=== PATIENT | female | born 1970 | race Caucasian/White ===

== ENCOUNTER 2016-06-28 16:26 | Emergency (ER) | payer OTHER ==
[~2016-06-28] VITALS: Ht 165.1 cm; Wt 77.1 kg
[2016-06-28 16:46] VITALS: BP 129/95
[2016-06-28] MEDS ORDERED: METF500T PO (16:48)
--- NOTE | 2016-06-28 16:49 | NUR ---
Patient ambulated to bed 8. RN evaluating patient at bedside.
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
--- NOTE | 2016-06-28 17:08 | NUR ---
ER MD DR MARCOS EVALUATING PT AT BEDSIDE
[2016-06-28] MEDS ORDERED: HYDROcodone/APAP 5/325 MG 1 TAB TAB PO ONE (17:20)
[2016-06-28] MEDS ORDERED: METHOCARBAMOL 500 MG TAB PO SCH (17:20)
[2016-06-28 17:40] LABS: BASOPHILS # (AUTO) 0.3 K/uL (0.00-0.22); BASOPHILS % (AUTO) 3.3 % (0.0-2.0); EOSINOPHILS # (AUTO) 0.4 K/uL (0-0.4); EOSINOPHILS % (AUTO) 4.4 % (0.0-4.0); HEMATOCRIT 39.9 % (36-48); HEMOGLOBIN 13.1 g/dL (12.0-16.0); LYMPHOCYTES # (AUTO) 2.9 K/uL (2.5-16.5); LYMPHOCYTES % (AUTO) 32.2 % (20.5-51.1); MEAN CORPUSCULAR HEMOGLOBIN 28 pg (27-31); MEAN CORPUSCULAR HGB CONC 33 g/dL (33-37); MEAN CORPUSCULAR VOLUME 85 fL (80-94); MONOCYTES # (AUTO) 0.5 K/uL (0.8-1.0); MONOCYTES % (AUTO) 5.1 % (1.7-9.3); NEUTROPHILS # (AUTO) 4.8 K/uL (1.8-7.7); PLATELET COUNT (AUTO) 191 K/uL (140-450); RED CELL DISTRIBUTION WIDTH 12.6 % (11.6-13.7)
[2016-06-28 17:48] LABS: ANION GAP 12.4 (8-16); CALCIUM 7.9 mg/dL (8.5-10.1); CARBON DIOXIDE 26.6 mmol/L (21-32); CREATININE 0.8 mg/dL (0.6-1.3)
[2016-06-28 17:54] LABS: ALBUMIN 3.3 g/dL (3.4-5.0); TOTAL BILIRUBIN 0.3 mg/dL (0.0-1.0); TOTAL PROTEIN, SERUM 7.3 g/dL (6.4-8.2)
--- NOTE | 2016-06-28 18:02 | NUR ---
PT TAKEN TO X RAY VIA W/C ACCOMPANIED BY NATHANIEL BAUTISTAT
--- NOTE | 2016-06-28 19:14 | NUR ---
Pt report given to KAT AVILA. Transfer of care at this time.
--- NOTE | 2016-06-28 19:15 | NUR ---
RECIEVED REPORT FROM AM NURSE AT BEDSIDE. PT IS AAOX4, NO SOB/DISTRESS NOTED. C/O PAIN ON LEFT NECK, SHOULDER, LEFT FLANK, AND LEFT KNEE, 8/10. BRUISE NOTED ON RYLEE. KNEES. IV ON LEFT HAND 20GA, SL. AT THIS TIME. ABLE TO MOVE ALL EXTREMITIES. BS 371MG/GL, AWARE PER REPORT. WILL CONTINUE TO MONITOR.
--- NOTE | 2016-06-28 19:20 | NUR ---
PT TRANSFFERED TO CT VIA WHEELCHAIR.
--- NOTE | 2016-06-28 19:31 | NUR ---
PT IS BACK FROM CT. VSS.
[2016-06-28 21:07] VITALS: BP 120/80
--- NOTE | 2016-06-28 21:07 | NUR ---
Patient discharged with v/s stable. Written and verbal after care instructions given and explained BY DR. PRIETO. Patient alert, oriented and verbalized understanding of instructions. Ambulatory with steady gait. All questions addressed prior to discharge. ID band removed. Patient advised to follow up with PMD. Rx of NAPROSYN given. Patient educated on indication of medication including possible reaction and side effects. Opportunity to ask questions provided and answered.
== END 2016-06-28 21:07 | disposition home or self-care (01) ==
LOC: MED 16:26
DX: S83.92XA Sprain of unspecified site of left knee, initial encounter (principal); E11.65 Type 2 diabetes mellitus with hyperglycemia; R10.84 Generalized abdominal pain; R07.89 Other chest pain; V43.52XA Car driver injured in collision with other type car in traffic accident, initial encounter; Y93.89 Activity, other specified; Y92.89 Other specified places as the place of occurrence of the external cause; Y99.8 Other external cause status
CPT/HCPCS: 36415; 71010; 73562; 80053; 81002; 81025; 82948; 85025; 99285

== ENCOUNTER 2017-02-27 14:48 | Emergency (ER) | payer SELFPAY ==
[~2017-02-27] VITALS: Ht 162.6 cm; Wt 76.8 kg
[~2017-02-27 14:48] MED LIST: METF500T PO
[2017-02-27 15:03] VITALS: BP 140/90
--- NOTE | 2017-02-27 18:02 | NUR ---
Patient ambulated to bed 8. RN evaluating patient at bedside.
--- NOTE | 2017-02-27 18:11 | NUR ---
ASSUMED PATIENT CARE, CONCUR WITH TRIAGE ASSESSMENT, BEDDED IN ER 8, ORIENTED TO PLAN OF CARE.
--- NOTE | 2017-02-27 18:30 | NUR ---
SEEN AND EVALUATED BY PROVIDER, MSE COMPLETED.
[2017-02-27 19:29] VITALS: BP 128/69
--- NOTE | 2017-02-27 19:35 | NUR ---
Patient discharged with v/s stable. Written and verbal after care instructions given and explained. Patient alert, oriented and verbalized understanding of instructions. Ambulatory with steady gait. All questions addressed prior to discharge. ID band removed. Patient advised to follow up with PMD. Rx of IBUPROFEN 800MG QID/PRN, AMOXICILLIN 500MG TID given. Patient educated on indication of medication including possible reaction and side effects. Opportunity to ask questions provided and answered.
== END 2017-02-27 19:29 | disposition home or self-care (01) ==
LOC: MED 14:48
DX: K04.7 Periapical abscess without sinus (principal); K02.9 Dental caries, unspecified; R03.0 Elevated blood-pressure reading, without diagnosis of hypertension; E11.9 Type 2 diabetes mellitus without complications; Z79.84 Long term (current) use of oral hypoglycemic drugs
CPT/HCPCS: 99283

== ENCOUNTER 2022-11-09 15:53 | Emergency (ER) | payer OTHER ==
[~2022-11-09] VITALS: Ht 160 cm; Wt 70.3 kg
[~2022-11-09 15:53] MED LIST changes: +METF-346 PO; -METF500T PO; +METO-486 PO
[2022-11-09 16:09] VITALS: BP 137/60; PULSE 93; RESP 20; TEMP 98; O2SAT 99
[2022-11-09 18:19] LABS: BASOPHILS % (AUTO) 0.5 % (0.0-2.0); EOSINOPHILS # (AUTO) 0.9 K/uL (0-0.4); EOSINOPHILS % (AUTO) 15.8 % (0.0-4.0); HEMATOCRIT 33.2 % (36-48); HEMOGLOBIN 11.2 g/dL (12.0-16.0); LYMPHOCYTES # (AUTO) 1.4 K/uL (2.5-16.5); LYMPHOCYTES % (AUTO) 24.7 % (20.5-51.1); MEAN CORPUSCULAR HEMOGLOBIN 28 pg (27-31); MEAN CORPUSCULAR HGB CONC 34 g/dL (33-37); MEAN CORPUSCULAR VOLUME 83.9 fL (80-94); MONOCYTES # (AUTO) 0.5 K/uL (0.8-1.0); MONOCYTES % (AUTO) 8.4 % (1.7-9.3); NEUTROPHILS # (AUTO) 2.8 K/uL (1.8-7.7); NEUTROPHILS % (AUTO) 50.6 % (42.2-75.2); PLATELET COUNT (AUTO) 167 K/uL (140-450); RED BLOOD CELL COUNT(AUTO) 3.96 MIL/uL (4.20-5.40); RED CELL DISTRIBUTION WIDTH 15.7 % (11.6-13.7); WHITE BLOOD COUNT (AUTO) 5.5 K/uL (4.8-10.8)
[2022-11-09 18:33] LABS: ALBUMIN 2.9 g/dL (3.4-5.0); ANION GAP 9.1 (8-16); CALCIUM 8.4 mg/dL (8.5-10.1); CARBON DIOXIDE 30.3 mmol/L (21-32); CREATININE 0.8 mg/dL (0.6-1.3); POTASSIUM 4.4 mmol/L (3.5-5.1); TOTAL BILIRUBIN 0.3 mg/dL (0.0-1.0); TOTAL PROTEIN, SERUM 7.1 g/dL (6.4-8.2)
== END 2022-11-09 20:15 | disposition home or self-care (01) ==
LOC: MED 15:53
DX: R60.0 Localized edema (principal); R07.89 Other chest pain; E11.9 Type 2 diabetes mellitus without complications; I10 Essential (primary) hypertension; Z79.899 Other long term (current) drug therapy; Z79.84 Long term (current) use of oral hypoglycemic drugs
CPT/HCPCS: 36415; 71045; 80053; 84484; 85025; 93005; 99285

== ENCOUNTER 2023-03-24 06:52 | Day surgery (SDC) | payer OTHER ==
[~2023-03-24] VITALS: Ht 160 cm; Wt 77.1 kg
[2023-03-24] MEDS ORDERED: LIDOCAINE 2% 100 MG/5 ML UJET TP ONE (07:52)
[2023-03-24] MEDS ORDERED: fentaNYL citrate 0.05 MG/ML VIAL ONE (07:52)
[2023-03-24] MEDS ORDERED: fentaNYL citrate 0.05 MG/ML VIAL IVP ONE (09:10)
== END 2023-03-24 09:20 | disposition home or self-care (01) ==
LOC: MDS 06:52 → MMU 06:53 → MDS 09:20
PROVIDERS: ATTEND Internal Medicine Gastroenterology
DX: Z12.11 Encounter for screening for malignant neoplasm of colon (principal); E11.9 Type 2 diabetes mellitus without complications; Z79.899 Other long term (current) drug therapy
CPT/HCPCS: 45378; 82948; J3010

== ENCOUNTER 2024-01-27 15:47 | Emergency (ER) | payer SELFPAY ==
[~2024-01-27] VITALS: Ht 160 cm; Wt 77.1 kg
[2024-01-27 15:57] VITALS: BP 175/84; PULSE 83; RESP 16; TEMP 98.4; O2SAT 99
[2024-01-27] MEDS ORDERED: KETO10TA2 PO (17:21)
[2024-01-27] MEDS ORDERED: COROTSOL OT (17:21)
[2024-01-27] MEDS: KETOROLAC 30 MG/ML VIAL IM ONE (17:43)
[2024-01-27 17:48] VITALS: BP 165/84; PULSE 85; RESP 18; TEMP 98.4; O2SAT 98
== END 2024-01-27 17:47 | disposition home or self-care (01) ==
LOC: MED 15:47
DX: H60.92 Unspecified otitis externa, left ear (principal); E11.9 Type 2 diabetes mellitus without complications; I10 Essential (primary) hypertension; Z79.84 Long term (current) use of oral hypoglycemic drugs; Z79.899 Other long term (current) drug therapy
CPT/HCPCS: 81025; 96372; 99283; J1885